=== PATIENT | female | born 1985 | race Caucasian/White ===

== ENCOUNTER 2022-03-11 09:04 | Outpatient (CLI) | payer SELFPAY ==
--- NOTE | 2022-03-11 09:00 | RT.EKG_ITS ---
APPROVED REPORT Exam: Resting ECG Reason for Exam: syncope Patient Location: O HR:85 bpm ECG Measurements Heart Rate 85 AXIS NC 116 P 59 QRSd 86 QRS 42 QT 355 T 11 QTc 422 Conclusion Sinus rhythm...normal P axis, V-rate 50- 99 Borderline short NC interval...NC int <120mS Otherwise normal
== END 2022-03-11 09:05 | disposition home or self-care (01) ==
LOC: DI.CARD 09:04
PROVIDERS: PCP Nurse Practitioner Family; Visit Provider Internal Medicine Cardiovascular Disease
DX: R55 Syncope and collapse (principal)
CPT/HCPCS: 93010

== ENCOUNTER 2022-03-28 01:48 | Outpatient (CLI) | payer OTHER, SELFPAY ==
[2022-03-28 13:06] LABS: HCT 36.4 % (36.0-46.0); MCH 30.8 pg (27.0-33.0); MCV 93 fL (80-95); MPV 10.2 fL (8.0-11.0); Platelet Count 245 10^3/uL (130-400); RDW 12.5 % (11.7-14.6); RDW-SD 42.7 fL; WBC 5.08 10^3/uL (4.4-10.8)
[2022-03-28 23:02] LABS: Prolactin 4.3 ng/mL (See Note)
== END 2022-03-28 01:49 | disposition home or self-care (01) ==
LOC: LBO 01:48
PROVIDERS: PCP Nurse Practitioner Family; Visit Provider Obstetrics & Gynecology
DX: N93.8 Other specified abnormal uterine and vaginal bleeding (principal)
CPT/HCPCS: 36415; 85027; 84146; 84443

== ENCOUNTER 2022-07-10 10:15 | Outpatient (REF) | payer OTHER, SELFPAY ==
[2022-07-10 15:14] LABS: HCT 32.5 % (36.0-46.0); HGB 10.9 g/dL (11.2-15.7); MCHC 33.5 % (32.0-36.0); MCV 90 fL (80-95); MPV 10.9 fL (8.0-11.0); Platelet Count 243 10^3/uL (130-400); RBC 3.63 10^6/uL (3.93-5.22); RDW 12.1 % (11.7-14.6); RDW-SD 39.6 fL; WBC 5.23 10^3/uL (4.4-10.8)
[2022-07-10 15:41] LABS: ALT 19 U/L (14-59); AST 17 U/L (15-37); Albumin 3.9 g/dL (3.4-5.0); Alkaline Phosphatase 44 U/L (46-116); Anion Gap 7.8 mmol/L (3-11); BUN 14 mg/dL (7-18); Bilirubin, Total 0.3 mg/dL (0.2-1.0); CO2 30.2 mmol/L (21.0-32.0); CREATININE 0.9 mg/dL (0.55-1.02); Calcium 9.1 mg/dL (8.5-10.1); Chloride 104 mmol/L (98-107); Estimated GFR 84.97 (mL/min/1.73m2); Glucose 112 mg/dL (74-106); Sodium 142 mmol/L (136-145)
[2022-07-10 18:23] LABS: Iron 83 ug/dL (50-170); Total Iron Binding Capacity 276 ug/dL (250-450); Transferrin Sat 30 % (15-50)
== END 2022-07-10 10:16 | disposition home or self-care (01) ==
LOC: NCHCN 10:15
PROVIDERS: PCP Nurse Practitioner Family; Visit Provider Nurse Practitioner Family
DX: I49.8 Other specified cardiac arrhythmias (principal); D64.9 Anemia, unspecified
CPT/HCPCS: 80053; 85027; 83540; 83550

== ENCOUNTER 2022-07-16 08:39 | Outpatient (CLI) | payer OTHER, SELFPAY ==
--- NOTE | 2022-07-16 08:30 | RT.EKG_ITS ---
APPROVED REPORT Exam: Resting ECG Reason for Exam: tachy raymond Patient Location: O HR:67 bpm ECG Measurements Heart Rate 67 AXIS TN 122 P 16 QRSd 78 QRS 25 QT 370 T 40 QTc 391 Conclusion Sinus rhythm...normal P axis, V-rate 50- 99 Low voltage, precordial leads...precordial leads <1.0mV
== END 2022-07-16 08:40 | disposition home or self-care (01) ==
LOC: DI.CARD 08:40
PROVIDERS: PCP Nurse Practitioner Family; Visit Provider Internal Medicine Cardiovascular Disease
DX: I49.8 Other specified cardiac arrhythmias (principal); R55 Syncope and collapse
CPT/HCPCS: 93010

== ENCOUNTER 2022-07-25 01:50 | Outpatient (CLI) | payer OTHER, SELFPAY ==
[2022-07-25 16:52] LABS: ESR 12 mm/hr (0-20)
[2022-07-25 17:35] LABS: C-Reactive Protein < 0.05 mg/dL (0.0-0.3)
[2022-07-27 17:26] LABS: Rheumatoid Factor <8.6 IU/mL (<12.0)
[2022-07-28 14:21] LABS: ANA Interpretation Negative (Negative)
== END 2022-07-25 01:51 | disposition home or self-care (01) ==
LOC: LBO 01:51
PROVIDERS: PCP Nurse Practitioner Family; Visit Provider Nurse Practitioner Family
DX: R52 Pain, unspecified (principal)
CPT/HCPCS: 36415; 85652; 86038; 86140; 86431

== ENCOUNTER 2022-12-17 14:09 | Emergency (ER) | payer OTHER, SELFPAY ==
[2022-12-17] VITALS (45 sets, daily range): BP systolic 93–128; BP diastolic 50–86; PULSE 76–114; RESP 13–64; TEMP 36.6; O2SAT 99–100
--- NOTE | 2022-12-17 14:15 | RT.EKG_ITS ---
APPROVED REPORT Exam: Resting ECG Reason for Exam: chest pain sob Patient Location: E HR:91 bpm ECG Measurements Heart Rate 91 AXIS UT 128 P 58 QRSd 73 QRS 30 QT 357 T 48 QTc 441 Conclusion Sinus rhythm...normal P axis, V-rate 60- 99
[2022-12-17 15:07] LABS: Abs Immature Grans 0.09 10^3/uL (0.0-0.06); Absolute Basophil Count 0.06 10^3/uL (0.0-0.2); Absolute Eosinophil Count 0.03 10^3/uL (0.0-0.7); Absolute Lymphocyte Count 1.86 10^3/uL (1.2-3.4); Absolute Neutrophil Count 6.45 10^3/uL (1.2-6.7); Basophils % 0.7; Eosinophils % 0.3; HCT 37.9 % (36.0-46.0); HGB 13.1 g/dL (11.2-15.7); Lymphocytes % 20.7; MCH 30.8 pg (27.0-33.0); MCHC 34.6 % (32.0-36.0); MCV 89 fL (80-95); Monocytes % 5.6; Neutrophils % 71.7; Platelet Count 249 10^3/uL (130-400); RBC 4.26 10^6/uL (3.93-5.22); RDW 12.5 % (11.7-14.6); RDW-SD 39.8 fL; WBC 8.99 10^3/uL (4.4-10.8)
[2022-12-17 15:22] LABS: Bilirubin Negative (Negative); Blood Negative (Negative); Clarity Clear (Clear); Glucose Negative (Negative); Ketones 40 mg/dL (Negative); Leukocyte Esterase Negative (Negative); Nitrite Negative (Negative); Specific Gravity 1.015 (1.005-1.025); Urobilinogen 0.2 mg/dL (Up to 0.2)
[2022-12-17 15:31] LABS: ALT 23 U/L (14-59); AST 17 U/L (15-37); Albumin 4.4 g/dL (3.4-5.0); Alkaline Phosphatase 54 U/L (46-116); BUN 13 mg/dL (7-18); Bilirubin, Total 0.4 mg/dL (0.2-1.0); CREATININE 0.6 mg/dL (0.55-1.02); Calcium 9.7 mg/dL (8.5-10.1); Chloride 101 mmol/L (98-107); Estimated GFR 119.23 (mL/min/1.73m2); Glucose 91 mg/dL (74-106); Magnesium 1.8 mg/dL (1.8-2.4); Potassium 3.1 mmol/L (3.5-5.1); Sodium 141 mmol/L (136-145); Total Protein 8.6 g/dL (6.4-8.2); Troponin I < 50 ng/L (<or=60)
[2022-12-17 15:40] LABS: D-Dimer 285 ng/mlFEU (<500)
[2022-12-17 15:58] LABS: COVID-19 PCR Negative (Negative); Influenza A PCR Negative (Negative); Influenza B PCR Negative (Negative); RSV PCR Negative (Negative)
[2022-12-17 16:00] LABS: Source Nasopharynx
[2022-12-17] MEDS: Normal Saline 1,000 ML 1000 ML IV ×2 (16:30→17:50)
--- NOTE | 2022-12-17 16:45 | DI.RAD_ITS ---
Exam(s) XR CHEST 2V PA LATERAL EXAM: XR CHEST 2V PA LATERAL CLINICAL HISTORY: shortness of breath TECHNIQUE: 2D digital imaging was performed. COMPARISON: No exams were available for comparison FINDINGS: HEART: Normal size. Aorta: Not dilated. PULMONARY VASCULATURE: Normal. LUNGS: Clear. PLEURAL SPACE: No pleural effusion or pneumothorax. BONE:Unremarkable for age. IMPRESSION: No acute abnormality. DATA REPOSITORY: RADIATION DOSE DELIVERED:
--- NOTE | 2022-12-17 16:47 | ED.GENADUL_ITS ---
Discharge Plan Disposition Patient Disposition: Home Condition: Stable Discharge Details Clinical Impression: POTS (postural orthostatic tachycardia syndrome), Dyspnea Primary Care Provider: Kathy Ward ED Provider: Doreen Singh Home Meds and New Rx's Prescriptions: No Action vitassium PO ivabradine 5 mg tablet 5 mg PO BID Patient Comments: 07/16/22 Pt states 5 mg daily and sometimes at night if she is up late. RH Rx Instructions: must administer with a meal/food Discharge Instructions Instructions: Dyspnea (ED) Additional Instructions: Cardiac work-up is within normal limits, chest x-ray shows possible bronchitis. Please follow-up with a Holter monitor as directed. Follow up with primary care provider in 3-5 days. Return to ED sooner if any worsening or concerns. Increase oral fluids. Referrals: Kathy Ward [Primary Care Provider] - 3 days Discharge Data Discharge Date/Time-TO BE ENTERED AT DEPARTURE: 12/17/22 18:29 Medical Decision Making Patient has negative troponin, D-dimer, chest x-ray pending, patient is orthostatic, this is likely slightly change from her baseline She does have a gap of 13, suspect mild dehydration Hypokalemia, 3.1, this was supplemented remainder of labs do not show evidence of acute abnormality Will administer 1 more liter of saline, check repeat troponin, and arrange for outpatient Holter monitor Care will be transitioned to Doreen Singh pending reassessment HPI General Date/Time Provider Initiated Documentation: 12/17/22 14:21 . HPI Narrative: This 33-year-old female with history of POTS presents with report of weakness and shortness of breath with tremors with exertion. States she has a history of similar symptoms but states has been affecting her significantly today and she is been having palpitations. 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 Related Data Home Medications Medication Instructions Recorded Confirmed vitassium PO 01/15/22 10/15/22 ivabradine 5 mg tablet 5 mg PO BID 07/16/22 10/15/22 Allergies Allergy/AdvReac Type Severity Reaction Status Date / Time Sulfa (Sulfonamide AdvReac Intermediate Verified 10/15/22 10:15 Antibiotics) coffee (Coffea arabica) AdvReac Mild Verified 10/15/22 10:15 General Stated Complaint: Chest Pain KULWINDER: 3 PFSH All Active Problems (Updated 12/17/22 @ 18:12 by Doreen Singh NP) Dyspnea (Acute) DUB (dysfunctional uterine bleeding) (Acute) POTS (postural orthostatic tachycardia syndrome) (Acute) Medical History Palpitations Syncope and collapse pots, triggers standing in one spot, heat 01/15/22 RH Family History Mother Blood coagulation disorder Maternal Grandmother Blood coagulation disorder Atrial fibrillation and flutter SVT (supraventricular tachycardia) Stroke Paternal Grandmother Stroke Heart disease Father Hyperlipidemia Hypertension Social History Smoking/Tobacco Use Status: Never Smoking risk assessment performed?: Yes Alcohol Intake: never Drug use: Never Substance use type: does not use Household members: family Number of Children: 2 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 Date GA/Weeks # Preg Succ Route Wgt Sex Labor Lgth Anesth esia Location [facility] 08/12/15 40 No vaginal 2920.001 g Female 09/11/17 40 No vaginal 3288.545 g Female Exam Narrative Exam Narrative: Patient is fully alert and oriented, pupils equal round reactive to light and accommodation, clear to auscultation bilaterally, cardiac rate and rhythm regular, nontender abdominal exam, pale, fully alert and oriented Course Vital Signs Vital signs: Vital Signs Pulse 99 H 12/17/22 14:25 Respiratory Rate 20 12/17/22 14:25 Blood Pressure 125/84 12/17/22 14:25 Pulse Oximetry 100 12/17/22 14:25 Pulse 84 12/17/22 14:46 Respiratory Rate 20 12/17/22 14:55 Respiratory Effort Short of Breath 12/17/22 14:55 Respiratory Depth Normal 12/17/22 14:55 Respiratory Pattern Normal 12/17/22 14:55 Blood Pressure 123/80 12/17/22 14:46 Blood Pressure Position Sitting 03/08/23 14:25 Pulse Oximetry 100 12/17/22 14:25 Oxygen Delivery Method Room Air 12/17/22 14:25 Oxygen Flow Rate 0 12/17/22 14:25 Pain Level 3 12/17/22 14:25 Comment chest pain. 12/17/22 14:25 Lab/Test Results Lab/Test Results: Laboratory Tests Range/Units 12/17/22 12/17/22 12/17/22 14:58 14:58 14:58 WBC (4.4-10.8) 10^3/uL 8.99 RBC (3.93-5.22) 10^6/uL 4.26 Hgb (11.2-15.7) g/dL 13.1 Hct (36.0-46.0) % 37.9 MCV (80-95) fL 89 MCH (27.0-33.0) pg 30.8 MCHC (32.0-36.0) % 34.6 RDW (11.7-14.6) % 12.5 Plt Count (130-400) 10^3/uL 249 MPV (8.0-11.0) fL 10.0 Immature Gran % 1.0 Neutrophils % 71.7 Lymphocytes % 20.7 Monocytes % 5.6 Eosinophils % 0.3 Basophils % 0.7 Nucleated RBC % (0.0-0.3) % 0.0 Absolute Neutrophils (1.2-6.7) 10^3/uL 6.45 Absolute Lymphocytes (1.2-3.4) 10^3/uL 1.86 Absolute Monocytes (0.1-0.8) 10^3/uL 0.50 Absolute Eosinophils (0.0-0.7) 10^3/uL 0.03 Absolute Basophils (0.0-0.2) 10^3/uL 0.06 D-Dimer (<500) ng/mlFEU 285 Sodium (136-145) mmol/L 141 Potassium (3.5-5.1) mmol/L 3.1 L Chloride (98-107) mmol/L 101 Carbon Dioxide (21.0-32.0) mmol/L 27.0 Anion Gap (3-11) mmol/L 13.0 H BUN (7-18) mg/dL 13 Creatinine (0.55-1.02) mg/dL 0.6 Est GFR (CKD-EPI 2020) (mL/min/1.73m2) 119.23 Glucose (74-106) mg/dL 91 Calcium (8.5-10.1) mg/dL 9.7 Magnesium (1.8-2.4) mg/dL 1.8 Total Bilirubin (0.2-1.0) mg/dL 0.4 AST (15-37) U/L 17 ALT (14-59) U/L 23 Alkaline Phosphatase (46-116) U/L 54 Troponin I (<or=60) ng/L < 50 Total Protein (6.4-8.2) g/dL 8.6 H Albumin (3.4-5.0) g/dL 4.4 TSH (0.36-3.74) uIU/mL 1.20 Urine Color (Yellow) Urine Clarity (Clear) Urine pH (5-8) Ur Specific [place] (1.005-1.025) Urine Protein (Negative) mg/dL Urine Ketones (Negative) mg/dL Urine Blood (Negative) Urine Nitrite (Negative) Urine Bilirubin (Negative) Urine Urobilinogen (Up to 0.2) mg/dL Ur Leukocyte Esterase (Negative) Urine Glucose (Negative) mg/dL COVID-19 Source SARS-CoV-2 (PCR) (Negative) Influenza Type A (PCR) (Negative) Influenza Type B (PCR) (Negative) RSV (PCR) (Negative) Range/Units 12/17/22 12/17/22 15:00 15:15 WBC (4.4-10.8) 10^3/uL RBC (3.93-5.22) 10^6/uL Hgb (11.2-15.7) g/dL Hct (36.0-46.0) % MCV (80-95) fL MCH (27.0-33.0) pg MCHC (32.0-36.0) % RDW (11.7-14.6) % Plt Count (130-400) 10^3/uL MPV (8.0-11.0) fL Immature Gran % Neutrophils % Lymphocytes % Monocytes % Eosinophils % Basophils % Nucleated RBC % (0.0-0.3) % Absolute Neutrophils (1.2-6.7) 10^3/uL Absolute Lymphocytes (1.2-3.4) 10^3/uL Absolute Monocytes (0.1-0.8) 10^3/uL Absolute Eosinophils (0.0-0.7) 10^3/uL Absolute Basophils (0.0-0.2) 10^3/uL D-Dimer (<500) ng/mlFEU Sodium (136-145) mmol/L Potassium (3.5-5.1) mmol/L Chloride (98-107) mmol/L Carbon Dioxide (21.0-32.0) mmol/L Anion Gap (3-11) mmol/L BUN (7-18) mg/dL Creatinine (0.55-1.02) mg/dL Est GFR (CKD-EPI 2020) (mL/min/1.73m2) Glucose (74-106) mg/dL Calcium (8.5-10.1) mg/dL Magnesium (1.8-2.4) mg/dL Total Bilirubin (0.2-1.0) mg/dL AST (15-37) U/L ALT (14-59) U/L Alkaline Phosphatase (46-116) U/L Troponin I (<or=60) ng/L Total Protein (6.4-8.2) g/dL Albumin (3.4-5.0) g/dL TSH (0.36-3.74) uIU/mL Urine Color (Yellow) Yellow Urine Clarity (Clear) Clear Urine pH (5-8) 6.0 Ur Specific [place] (1.005-1.025) 1.015 Urine Protein (Negative) mg/dL Negative Urine Ketones (Negative) mg/dL 40 H Urine Blood (Negative) Negative Urine Nitrite (Negative) Negative Urine Bilirubin (Negative) Negative Urine Urobilinogen (Up to 0.2) mg/dL 0.2 Ur Leukocyte Esterase (Negative) Negative Urine Glucose (Negative) mg/dL Negative COVID-19 Source Nasopharynx SARS-CoV-2 (PCR) (Negative) Negative Influenza Type A (PCR) (Negative) Negative Influenza Type B (PCR) (Negative) Negative RSV (PCR) (Negative) Negative POC- Test(urine) Negative
--- NOTE | 2022-12-17 17:14 | ED.PROG_ITS ---
Date of service: 12/17/22 Time of Service: 17:14 Medical Decision Making Care assumed from provider (SYDNEE Pacheco) Please see their initial HPI, PE, and documentation. Discussed patient details and case and pending workup and disposition. Patient is hemodynamically stable, and alert and oriented. At the time of signout awaiting serial troponin and ordering of Holter monitor and reassessment. In short patient is 37-year-old female with a history of POTS syndrome who presents with generalized weakness worse with movement positional changes shortness of breath with ambulatory. Patient has had a negative work-up so far including D-dimer. Repeat troponin within normal limits, chest x-ray shows possible bronchitis. No pleural effusion no consolidation. Discussed results with patient who verbalized understanding. I did offer a work note which patient declined at this time. Patient states that she feels well enough to be discharged home. Discussed tricked return instructions and follow-up care. Patient remained hemodynamically stable throughout the remainder of her stay. This text was ge nerated using YesWeAd dictation system, please disregard any oddities of phrase or misspellings. Lab Data Lab results reviewed: Yes I reviewed the patient's lab results. Labs: Laboratory Tests Range/Units 12/17/22 12/17/22 12/17/22 14:58 14:58 14:58 WBC (4.4-10.8) 10^3/uL 8.99 RBC (3.93-5.22) 10^6/uL 4.26 Hgb (11.2-15.7) g/dL 13.1 Hct (36.0-46.0) % 37.9 MCV (80-95) fL 89 MCH (27.0-33.0) pg 30.8 MCHC (32.0-36.0) % 34.6 RDW (11.7-14.6) % 12.5 Plt Count (130-400) 10^3/uL 249 MPV (8.0-11.0) fL 10.0 Immature Gran % 1.0 Neutrophils % 71.7 Lymphocytes % 20.7 Monocytes % 5.6 Eosinophils % 0.3 Basophils % 0.7 Nucleated RBC % (0.0-0.3) % 0.0 Absolute Neutrophils (1.2-6.7) 10^3/uL 6.45 Absolute Lymphocytes (1.2-3.4) 10^3/uL 1.86 Absolute Monocytes (0.1-0.8) 10^3/uL 0.50 Absolute Eosinophils (0.0-0.7) 10^3/uL 0.03 Absolute Basophils (0.0-0.2) 10^3/uL 0.06 D-Dimer (<500) ng/mlFEU 285 Sodium (136-145) mmol/L 141 Potassium (3.5-5.1) mmol/L 3.1 L Chloride (98-107) mmol/L 101 Carbon Dioxide (21.0-32.0) mmol/L 27.0 Anion Gap (3-11) mmol/L 13.0 H BUN (7-18) mg/dL 13 Creatinine (0.55-1.02) mg/dL 0.6 Est GFR (CKD-EPI 2020) (mL/min/1.73m2) 119.23 Glucose (74-106) mg/dL 91 Calcium (8.5-10.1) mg/dL 9.7 Magnesium (1.8-2.4) mg/dL 1.8 Total Bilirubin (0.2-1.0) mg/dL 0.4 AST (15-37) U/L 17 ALT (14-59) U/L 23 Alkaline Phosphatase (46-116) U/L 54 Troponin I (<or=60) ng/L < 50 Total Protein (6.4-8.2) g/dL 8.6 H Albumin (3.4-5.0) g/dL 4.4 TSH (0.36-3.74) uIU/mL 1.20 Urine Color (Yellow) Urine Clarity (Clear) Urine pH (5-8) Ur Specific [place] (1.005-1.025) Urine Protein (Negative) mg/dL Urine Ketones (Negative) mg/dL Urine Blood (Negative) Urine Nitrite (Negative) Urine Bilirubin (Negative) Urine Urobilinogen (Up to 0.2) mg/dL Ur Leukocyte Esterase (Negative) Urine Glucose (Negative) mg/dL COVID-19 Source SARS-CoV-2 (PCR) (Negative) Influenza Type A (PCR) (Negative) Influenza Type B (PCR) (Negative) RSV (PCR) (Negative) Range/Units 12/17/22 12/17/22 12/17/22 15:00 15:15 17:20 WBC (4.4-10.8) 10^3/uL RBC (3.93-5.22) 10^6/uL Hgb (11.2-15.7) g/dL Hct (36.0-46.0) % MCV (80-95) fL MCH (27.0-33.0) pg MCHC (32.0-36.0) % RDW (11.7-14.6) % Plt Count (130-400) 10^3/uL MPV (8.0-11.0) fL Immature Gran % Neutrophils % Lymphocytes % Monocytes % Eosinophils % Basophils % Nucleated RBC % (0.0-0.3) % Absolute Neutrophils (1.2-6.7) 10^3/uL Absolute Lymphocytes (1.2-3.4) 10^3/uL Absolute Monocytes (0.1-0.8) 10^3/uL Absolute Eosinophils (0.0-0.7) 10^3/uL Absolute Basophils (0.0-0.2) 10^3/uL D-Dimer (<500) ng/mlFEU Sodium (136-145) mmol/L Potassium (3.5-5.1) mmol/L Chloride (98-107) mmol/L Carbon Dioxide (21.0-32.0) mmol/L Anion Gap (3-11) mmol/L BUN (7-18) mg/dL Creatinine (0.55-1.02) mg/dL Est GFR (CKD-EPI 2020) (mL/min/1.73m2) Glucose (74-106) mg/dL Calcium (8.5-10.1) mg/dL Magnesium (1.8-2.4) mg/dL Total Bilirubin (0.2-1.0) mg/dL AST (15-37) U/L ALT (14-59) U/L Alkaline Phosphatase (46-116) U/L Troponin I (<or=60) ng/L < 50 Total Protein (6.4-8.2) g/dL Albumin (3.4-5.0) g/dL TSH (0.36-3.74) uIU/mL Urine Color (Yellow) Yellow Urine Clarity (Clear) Clear Urine pH (5-8) 6.0 Ur Specific [place] (1.005-1.025) 1.015 Urine Protein (Negative) mg/dL Negative Urine Ketones (Negative) mg/dL 40 H Urine Blood (Negative) Negative Urine Nitrite (Negative) Negative Urine Bilirubin (Negative) Negative Urine Urobilinogen (Up to 0.2) mg/dL 0.2 Ur Leukocyte Esterase (Negative) Negative Urine Glucose (Negative) mg/dL Negative COVID-19 Source Nasopharynx SARS-CoV-2 (PCR) (Negative) Negative Influenza Type A (PCR) (Negative) Negative Influenza Type B (PCR) (Negative) Negative RSV (PCR) (Negative) Negative Discharge Plan Disposition Patient Disposition: Home Condition: Stable Discharge Details Clinical Impression: POTS (postural orthostatic tachycardia syndrome), Dyspnea Primary Care Provider: Kathy Ward ED Provider: Doreen Singh Home Meds and New Rx's Prescriptions: No Action vitassium PO ivabradine 5 mg tablet 5 mg PO BID Patient Comments: 07/16/22 Pt states 5 mg daily and sometimes at night if she is up late. RH Rx Instructions: must administer with a meal/food Discharge Instructions Instructions: Dyspnea (ED) Additional Instructions: Cardiac work-up is within normal limits, chest x-ray shows possible bronchitis. Please follow-up with a Holter monitor as directed. Follow up with primary care provider in 3-5 days. Return to ED sooner if any worsening or concerns. Increase oral fluids. Referrals: Kathy Ward [Primary Care Provider] - 3 days Discharge Orders Other Ambulatory Orders: Holter Monitor (STAT) Timeframe: 20221218 Facility: [facility] - Location: Respiratory Therapy Ordered By: Pili Nelson
[2022-12-17] MEDS: POTASSIUM CHLORIDE 20 MEQ, POTASSIUM CHLORIDE 10 MEQ 30 MEQ PO (17:45)
[2022-12-17 17:49] LABS: Troponin I < 50 ng/L (<or=60)
--- NOTE | 2022-12-17 17:58 | DI.VRAD_ITS ---
PROCEDURE INFORMATION: Exam: XR Chest Exam date and time: 12/17/2022 17:37 Age: 37 years old Clinical indication: Other: Shortness of breath TECHNIQUE: Imaging protocol: Radiologic exam of the chest. Views: 2 views. COMPARISON: No relevant prior studies available. FINDINGS: Lungs: Mild central interstitial thickening. No airspace consolidation. Pleural spaces: No pleural effusion. No pneumothorax. Heart/Mediastinum: No cardiomegaly. Bones/joints: No acute fracture. IMPRESSION: Interstitial thickening suggesting bronchitis, reactive airways disease or atypical infection. Dictated and Authenticated by: Cherri Lynn MD. Ordering:JAROCHO Alejandre MD
--- NOTE | 2022-12-22 11:58 | W.ED.FU ---
Date of service: 12/17/22 Follow Up Plan: Patient contacted emergency department requesting review of cortisol labs. Did access patient's lab results which showed that cortisol were was pending. Encouraged patient to use patient portal or follow-up with primary care provider.
[2023-01-08 02:00] LABS: Cortisol, Free 0.338 mcg/dL; Cortisol, LC-MS/MS 11 mcg/dL
== END 2022-12-17 18:29 | disposition home or self-care (01) ==
PROVIDERS: Physician Assistant; Emergency Provider Registered Nurse Emergency; PCP Nurse Practitioner Family
DX: G90.A Postural orthostatic tachycardia syndrome [POTS] (principal); R06.00 Dyspnea, unspecified; E87.6 Hypokalemia; Z20.822 Contact with and (suspected) exposure to COVID-19
CPT/HCPCS: 80053; 81025; 82530; 82533; 87637; 93005; 96360; 99284; 71046; 81003; 83735; 84443; 84484; 85025; 85379; 93010; 99283

== ENCOUNTER 2022-12-18 11:31 | Outpatient (RCR) | payer OTHER, SELFPAY ==
--- NOTE | 2022-12-18 11:30 | HOLTER_ITS ---
APPROVED REPORT Conclusion This is a 48-hour Holter monitor ordered for palpitations Rhythm throughout was sinus with an average heart rate of 75. Minimum was 59, maximum 135 1 atrial premature beat occurred A total of 23 isolated PVCs were seen There was no atrial fibrillation, no SVT, no high-grade AV block, no pauses greater than 3 seconds Multiple patient symptoms were reported which did not correlate with any dysrhythmia
== END 2023-01-09 23:59 | disposition home or self-care (01) ==
LOC: CARDOPNVT 11:31
PROVIDERS: PCP Nurse Practitioner Family; Visit Provider Physician Assistant
DX: R00.2 Palpitations (principal); I49.3 Ventricular premature depolarization
CPT/HCPCS: 93225; 93226

== ENCOUNTER 2023-01-15 11:44 | Outpatient (REF) | payer OTHER, SELFPAY ==
--- NOTE | 2023-01-15 09:20 | PAPFT_PTH ---
PATIENT: Janay You LOC: [facility] U#:[id number] AGE/SX: 37/F ROOM: RE01/15/[address]: Kathy Ward : 1985 BED: DIS: 01/15/2023 SPEC #: [id number] RECD: 01/15/23 16:39 STATUS: DAVID RERob #: [id number] JEAN-PIERRE: 01/15/23 09:[address]: Kathy Ward DEPT: [facility] Cytology RECD BY: Pili Deleon Tissues: 1 - CX/ENDOCX FOR PAP SMEARS Procedures: PAP THIN PREP/U[facility] Screening HPV DNA PROBE Comments: [id number]
== END 2023-01-15 11:45 | disposition home or self-care (01) ==
LOC: NCHCN 11:44
PROVIDERS: PCP Nurse Practitioner Family; Visit Provider Nurse Practitioner Family
DX: Z12.4 Encounter for screening for malignant neoplasm of cervix (principal); Z00.00 Encounter for general adult medical examination without abnormal findings; Z11.51 Encounter for screening for human papillomavirus (HPV)
CPT/HCPCS: 88142; 87624

== ENCOUNTER 2023-02-06 16:04 | Outpatient (CLI) | payer OTHER, SELFPAY ==
[2023-02-06 16:26] LABS: ESR 8 mm/hr (0-20)
[2023-02-09 14:41] LABS: ANA Interpretation Negative (Negative)
[2023-02-10 16:09] LABS: RNP Ab, IgG 1.1 Units (<20.0); SS-A Antibody 0.8 Units (<20.0); SS-B (La) Ab, IgG 1.5 Units (<20.0); Sm (Smith) Ab, IgG 1.6 Units (<20.0)
== END 2023-02-06 16:05 | disposition home or self-care (01) ==
LOC: LBO 16:09
PROVIDERS: PCP Nurse Practitioner Family; Visit Provider Psychiatry & Neurology Neurology
DX: I95.1 Orthostatic hypotension (principal); M35.00 Sjogren syndrome, unspecified
CPT/HCPCS: 36415; 85652; 86038; 86235

== ENCOUNTER 2023-02-09 03:57 | Outpatient (CLI) | payer OTHER, SELFPAY ==
--- NOTE | 2023-02-09 | DI.MRI_ITS ---
Exam(s) MR BRAIN WO/W EXAM: MR BRAIN WO/W CLINICAL HISTORY: LACK OF COORDINATIONPAIN,POSTURAL TACHYCARDIA,R27.9,I49.8 TECHNIQUE: Multiplanar multisequence MRI of the brain was performed. CONTRAST MATERIAL: IV Contrast: 9 mL of Dotarem contrast administered. COMPARISON: No exams were available for comparison FINDINGS: VENTRICLES AND EXTRA AXIAL SPACES: Normal in size and morphology for the patient's age. HEMORRHAGE: None. CEREBRAL PARENCHYMA: No focus of restricted diffusion to suggest acute infarct. No space-occupying [place] identified. MIDLINE SHIFT: None. BRAINSTEM/CEREBELLUM: Normal. CALVARIUM: Normal. ENHANCEMENT: No suspicious enhancement identified. VISUALIZED PARANASAL SINUSES/MASTOIDS: Clear. [place]: Normal flow void. PITUITARY GLAND: Unremarkable. OTHER FINDINGS: IMPRESSION: Unremarkable MRI of the brain. DATA REPOSITORY:
[2023-02-09] MEDS: Normal Saline Flush 10 ML SYR IVP (09:39)
== END 2023-02-09 04:17 ==
LOC: DI 03:58
PROVIDERS: PCP Nurse Practitioner Family; Visit Provider Nurse Practitioner Family
DX: R27.9 Unspecified lack of coordination (principal); I49.8 Other specified cardiac arrhythmias; R52 Pain, unspecified
CPT/HCPCS: 70553